=== PATIENT | female | born 1955 | race African-American/Black ===

== ENCOUNTER 2019-03-05 20:22 | Emergency (ER) | payer MEDICARE, MEDICAID ==
[~2019-03-05] VITALS: Ht 162.6 cm; Wt 117.9 kg
[~2019-03-05 20:22] MED LIST: ACETAMINOPHEN-1 EAC1 ORAL; ASPIRIN EC81 MG PO; FIORICET1 EA PO; IBUPROFEN600 MG PO; LOTENSIN20 MG PO; MACRODANTIN100 MG PO; METHOCARBAMOL750 MG PO; METOPROLOL SUCC25 MG PO; NITROFURANTOIN100 M2 ORAL; NORCO 5-325 TA1 EACH PO; NORVASC5 MG PO; OXYBUTYNIN CHLOR5 MG PO; PHENERGAN25 M1 PO; ROBAXIN-750750 MG PO; TAGAMET400 MG PO; VICODIN 5-5001 EACH PO
--- NOTE | 2019-03-05 20:34 | NUR ---
ED Nurse Note: pt presents to ED with angioedema of the upper and lower lips and face. pt states that she takes benazapril and that she recently changed manufacturers. pt denies any SOB or dyspnea at this time. pt does report or px where he lips and mouth are. Addendum: 03/05/19 at 2057 by QLE pt reports she took "2 benadryl" at lunchtime
[2019-03-05 20:44] VITALS: BP 158/65
--- NOTE | 2019-03-05 20:52 | NUR ---
ED Nurse Note: pt reports that she took the medication from the [employer] at the beginning of the month and took her last dose at around 0300 with soda a day ago and noticed the reaction around 0500
[2019-03-05] MEDS ORDERED: DiphenhydrAMINE 50mg/ml Inj IVP ONE (21:15)
[2019-03-05] MEDS ORDERED: Solu-MEDROL 125mg Inj IVP ONE (21:15)
[2019-03-05 21:36] LABS: BASOPHILS % (AUTO) 1.4 % (0.0-2.0); EOSINOPHILS % (AUTO) 1.5 % (0.0-3.0); HEMATOCRIT 40.5 % (37.0-47.0); HEMOGLOBIN 13.1 G/DL (12.0-16.0); LYMPHOCYTES % (AUTO) 31.6 % (20.0-45.0); MEAN CORPUSCULAR VOLUME 87 FL (80-99); NEUTROPHILS % (AUTO) 56.5 % (45.0-75.0); PLATELET COUNT 298 K/UL (150-450); RED BLOOD COUNT 4.64 M/UL (4.20-5.40); RED CELL DISTRIBUTION WIDTH 11.4 % (11.6-14.8); WHITE BLOOD COUNT 6.3 K/UL (4.8-10.8)
[2019-03-05 21:43] LABS: ANION GAP 9 mmol/L (5-15); BLOOD UREA NITROGEN 14 mg/dL (7-18); CARBON DIOXIDE 27 MMOL/L (21-32); CHLORIDE 105 MMOL/L (98-107); POTASSIUM 3.6 MMOL/L (3.5-5.1); SODIUM 141 MMOL/L (136-145)
[2019-03-05 21:47] LABS: ALANINE AMINOTRANSFERASE 19 U/L (12-78); ALBUMIN 3.4 G/DL (3.4-5.0); ALBUMIN/GLOBULIN RATIO 0.7 (1.0-2.7); ALKALINE PHOSPHATASE 68 U/L (46-116); ASPARTATE AMINO TRANSFERASE 18 U/L (15-37); BILIRUBIN,TOTAL 0.4 MG/DL (0.2-1.0)
--- NOTE | 2019-03-05 22:53 | Emergency Room Report ---
History of Present Illness General Chief Complaint: Allergic Reaction Source: Patient Present Illness HPI 63-year-old female presenting with edema to bilateral lips and face. After taking Benzapril. No history of reactions in the past. She reported that her generic medication changed from one brand to the other this month. She states that she took Benadryl this afternoon 2 tablets with no improvement. Her symptoms started yesterday at morning when she woke up. She took her medications 38-40 hours ago. Allergies: Coded Allergies: PENICILLINS (Verified Adverse Reaction, Intermediate, Itching, 12/06/11) Patient History Last Menstrual Period: NA Now: No Nursing Documentation-PM Past Medical History: No History, Except For Hx Cardiac Problems: Yes - HEART MURMER Hx Hypertension: Yes Hx Asthma: Yes Hx Gastrointestinal Problems: Yes - GASTRITIS Review of Systems Constitutional: Denies: chills, fever ENT: Reports: other - lip swelling, facial swelling; Denies: throat pain, throat swelling Respiratory: Denies: cough, shortness of breath Cardiovascular: Denies: chest pain, palpitations Gastrointestinal: Denies: diarrhea, vomiting Genitourinary: Denies: hematuria, pain Musculoskeletal: Denies: joint swelling Skin: Denies: rash, lesions Neurological: Denies: headache, dizziness Physical Exam Vital Signs Date Time Temp Pulse Resp B/P (MAP) Pulse Ox O2 Delivery O2 Flow Rate FiO2 03/05/19 20:29 98.6 85 20 158/65 (96) 97 Room Air Sp02 EP Interpretation: reviewed General Appearance: well appearing, no apparent distress, non-toxic Head: normocephalic, atraumatic Eyes: bilateral eye normal inspection ENT: hearing grossly normal, EOM grossly intact, normal voice, uvula midline, moist mucus membranes, other - edema to bilateral lips and face, no tongue swelling Neck: supple, thyroid normal, other - moderate edema to bilateral neck, left greater than right Respiratory: lungs clear, normal breath sounds, no respiratory distress, speaking full sentences, other - no stridor Cardiovascular #1: regular rate, rhythm, normal capillary refill Cardiovascular #2: 2+ radial (R), 2+ radial (L) Gastrointestinal: soft, non-distended Rectal: deferred Musculoskeletal: moves extm spontaneously, no lower extremity edema Neurologic: grossly normal Psychiatric: mood/affect normal Skin: warm/dry, normal turgor Medical Decision Making Diagnostic Impression: Primary Impression: Angioedema ER Course 63-year-old female presenting with edema to face consistent with angioedema. Recent change in her blood pressure medication on DEEPA inhibitor We will perform lab testing and given antihistamines, steroids reassess. Reevaluation Time: 23:43 Last Vital Signs Date Time Temp Pulse Resp B/P (MAP) Pulse Ox O2 Delivery O2 Flow Rate FiO2 03/05/19 20:44 85 20 Room Air 03/05/19 20:44 98.6 158/65 97 Reevaluation Impression Patient left AGAINST MEDICAL ADVICE patient recommended to be admitted to hospital for observation of angioedema given that her swelling is on face and neck. Patient states she does not want to stay in the hospital and she wants to leave AGAINST MEDICAL ADVICE as her symptoms been going on for 2 days and not worsening. Recommended to stop taking her blood pressure medications. And see her primary care doctor for different medication. Advised patient to return to emergency room she has any new complaints or symptoms. Patient understands she is taking risking her own hands may sustain loss of life or limb due to this medical condition. Disposition: AGAINST MEDICAL ADVICE Referrals: [facility],REFERRING (PCP) Chuck Quintana M.D. Mar 05, 2019 22:53
--- NOTE | 2019-03-05 23:35 | NUR ---
ED Nurse Note: pt states that she does not want to stay in the hospital overnight. LALI is aware and educated pt on risks of leaving hospital and when to return to an ED. pt and demiance at bedside verbalized understanding. paperwork has been signed. Addendum: 03/05/19 at 2348 by QLE pt stated that she "feels better and wants to leave." Addendum: 03/06/19 at 0159 by QLE pt left with all of her belongings, her gait is steady, IV and ID band removed without complications.
[2019-03-05 23:44] VITALS: BP 162/69
== END 2019-03-05 23:35 | disposition left against medical advice (07) ==
LOC: EMR 21:05 → EDBEDREQSVC 22:49 → EMR 23:35 → CANBEDREQ 23:42
DX: T78.3XXA Angioneurotic edema, initial encounter (principal); Z88.0 Allergy status to penicillin; I10 Essential (primary) hypertension
CPT/HCPCS: 36415; 80053; 85025; 96374; 96375; 99284; J1200; J2930